=== PATIENT | male | born 1975 | race Two or more races ===

== ENCOUNTER → 2024-06-09 | Outpatient (CLI) | payer BC, SELFPAY ==
[2024-06-12 20:07] LABS: G6PD Quant Test 259 (127-427); Red Blood Cell Count Test/G6PD 5.99 x10E6/uL (4.14-5.80)
== END | disposition home or self-care (01) ==
LOC: LABSPEC 15:17
PROVIDERS: Referring Provider Nurse Practitioner Family; Visit Provider Nurse Practitioner Family
DX: A69.20 Lyme disease, unspecified (principal)
CPT/HCPCS: 82955